=== PATIENT | female | born 1990 | race Caucasian/White ===

== ENCOUNTER 2016-05-14 21:44 | Outpatient (CLI) | payer OTHER, MEDICAID ==
[2016-05-14 22:24] VITALS: BMI 39.4
== END 2016-05-15 00:18 | disposition home or self-care (01) ==
LOC: FBC 21:44 → FBCOUT 21:44
PROVIDERS: ATTEND Family Medicine
DX: O47.9 False labor, unspecified (principal); Z3A.00 Weeks of gestation of pregnancy not specified
CPT/HCPCS: 59025; 81002; G0463

== ENCOUNTER 2016-06-03 19:49 | Outpatient (CLI) | payer OTHER, MEDICAID ==
[2016-06-03 20:09] VITALS: BMI 40.1
== END 2016-06-03 23:00 | disposition home or self-care (01) ==
LOC: FBC 19:49 → FBCOUT 19:49
PROVIDERS: ATTEND Family Medicine
DX: O47.9 False labor, unspecified (principal); Z3A.00 Weeks of gestation of pregnancy not specified
CPT/HCPCS: 59025; 81002; G0463

== ENCOUNTER 2016-06-05 18:33 | Inpatient (IN) | payer OTHER, MEDICAID ==
[~2016-06-05 18:33] MED LIST: OXYTOCIN IN LR 500 ML IV ONE
[2016-06-05] MEDS ORDERED: IV START KIT ONE (19:37)
[2016-06-05] MEDS ORDERED: LACTATED RINGERS 1,000 ML ONE (19:38)
[2016-06-05] MEDS ORDERED: MINERAL OIL 25 ML BOT ONE (19:38)
[2016-06-05] MEDS ORDERED: LIDOCAINE Viscous 2% 15 ML UDCUP ONE (19:38)
[2016-06-05] MEDS ORDERED: OXYTOCIN 10 UNITS/ML VIAL ONE (19:38)
[2016-06-05] MEDS ORDERED: LIDOCAINE 1% (PRES FREE) 30 ML VIAL ONE (19:38)
[2016-06-05] MEDS ORDERED: PUMP TUBING ONE (19:38)
[2016-06-05] MEDS ORDERED: OXYTOCIN IN LR 500 ML IV ONE (19:38)
[2016-06-05 20:36] LABS: HEMOGLOBIN 10.6 gm/l (12.0-16.0); MEAN CORPUSCULAR HEMOGLOBIN 25.2 pg (27.0-31.0); MEAN CORPUSCULAR HGB CONC 31.2 g/dl (33.0-37.0); RED CELL DISTRIBUTION WIDTH 15.9 % (11.5-14.5)
[2016-06-05 20:58] LABS: ALB/GLOB RATIO 0.9 (>1.0); CALCIUM 8.8 mg/dL (8.6-10.3); URIC ACID 3.8 mg/dL (2.3-7.6)
--- NOTE | 2016-06-05 21:01 | PCMAN ---
OB Admission Note - History : 2 Term: 1 : 1 Livin EDC:: 06/10/16 Gestational Age (weeks): 39 Days (#/7): 2 Admit Cervical Dilation:: 2 Admit Cervical Effacement (%):: 60 Admit Station:: -3 Admit Presentaton:: vertex Membrane Status: Intact Membranes Comment:: intact Contractions: Yes Contraction Frequency:: 3-5 min Heart Rate:: 150 Status:: category I - Physical Exam General: Afebrile Psych/Mental Status: Mood/Affect Appropriate, Judgment/Insight Intact Neurological: Grossly Intact, Alert, Oriented x 4, Normal Gait, Normal Speech, Normal Reflexes, Cranial Nerves 3-12 Intact HEENT: Atraumatic, PERRLA, EOMI Lungs: Clear to Auscultation Bilaterally, Normal Air Movement Cardiovascular: Regular Rate and Rhythm, Normal S1, Normal S2, No Murmur Genitourinary: Normal Female Genitalia Rectal Exam: Deferred Extremities: Full ROM, Normal Cap Refill, Normal Pulses Skin: Normal Color, Warm, Dry, Intact - Problems (1) Pre-eclampsia affecting , antepartum Status: Acute Code: O14.90 Assessment/Plan: 25 yr old at 39 2/7 weeks with BPs 140's/80's and proteinuria. PIH labs pending. Pt is TOLAC, so placed perry bulb for mechanical dilation. Bulb filled to 60 ml. (2) 39 weeks gestation of Status: Acute Code: Z3A.39 (3) Encounter for trial of labor Status: Acute Code: O33.4XX0 Assessment/Plan: TOLAC.
[2016-06-05 21:04] VITALS: BMI 42.4
[2016-06-05 22:32] LABS: CREATININE,RANDOM URINE 174 mg/dL
--- NOTE | 2016-06-06 08:07 | PDOC36 ---
Provider Note Subject: Update: Note: 25 yr old at 39 3/7 weeks IOL for mild pre-eclampsia. Martinez bulb was in overnight for mechanical cervical ripening. Pt reports was able to get a little sleep, and pain scale ranged 3-5 overnight with CTXs. FHR has been category I. [place]: CTXs q2-5 minutes. cervix check after bulb removal: 3 cm ( can stretch to 4 cm), 60%/ -3, soft but still posterior. AROM clear/blood tinged fluid. Await active labor. If needed, can add low-dose pitocin.
[2016-06-06] MEDS: LACTATED RINGERS 1,000 ML IV SCH ×3 (09:00→17:00)
[2016-06-06] MEDS ORDERED: FENTANYL 100 MCG/2 ML VIAL IV PRN (09:08)
--- NOTE | 2016-06-06 09:30 | PDOC36 ---
Provider Note Subject: Update Note: 25 yr old at 39 3/7 weeks. Pt requesting pain medication and given fentanyl 50 mcg times 1. FHTs 140's and category I. cx: 5 / 70%/-1, mid position. CTXs q 2-3 min and pt rates them > 7 on pain scale. Pt now requesting epidural.
[2016-06-06] MEDS ORDERED: FENTANYL/ROPIVACAINE EPIDURAL 250 ML EP ONE (09:35)
[2016-06-06] MEDS ORDERED: BUPIVACAINE 0.25% (PRES FREE) 30 ML VIAL ONE (09:50)
[2016-06-06] MEDS ORDERED: EPIDURAL PROCEDURE TRAY ONE (09:50)
[2016-06-06] MEDS ORDERED: EPIDURAL PUMP SET ONE (10:13)
[2016-06-06] MEDS ORDERED: LIDOCAINE 1% (PRES FREE) 30 ML VIAL IF ONE (22:19)
[2016-06-06] MEDS ORDERED: BENZOCAINE/MENTHOL 60 APPLIC/BOT TP PRN (22:36)
[2016-06-06] MEDS ORDERED: LANOLIN 50 APPLIC/7G TUBE TP PRN (22:36)
[2016-06-06] MEDS ORDERED: OXYCODONE HCL 5 MG TABLET PO PRN (22:36)
--- NOTE | 2016-06-06 22:41 | PCMDEL ---
Delivery Note - Labor 1st stage (hr/min):: 12 hr / 30 min 2nd stage (hr/min):: 1 hr / 32 min 3rd stage (hr/min):: 0 hr/ 6 min Total (hr/min):: 14 hr/ 8 min Pushed (hr/min):: 1 hr / 0 min - Delivery Delivery (Date): 06/06/16 Delivery (Time): 21:48 Gender: Female Position: OA Umbilical Cord: 3 Vessel, Nuchal Cord Delayed Cord Clamping:: < 1 min 1 Minute Total: 3 5 Minute Total: 7 (10 min:9) Placenta:: complete and spontaneous EBL:: 450 Perineum:: 2nd degree ML with extension to left posterior labial Suture:: 3-0 vicryl Anesthesia/Meds:: Epidural/ lidocaine for local perineum Length ROM:: 14 hours Comments:: 25 yr old G2 now P2 at 39 3/7 weeks. Pt is now successful vaginal after . Pt was admitted 06-05-16 for IOL due to pre-eclampsia. Transcervical perry bulb used for mechanical cervical ripening overnight, followed by AROM this AM. Pt had spontaneous contractions from these measures resulting in normal spontaneous vaginal . female appeared stunned at delivery, so cord was clamped at about 1 min post for resuscitation. Infant received PPV, CPAP, blow-by support and these measures were successful.
[2016-06-06] MEDS: IBUPROFEN 800 MG TABLET PO PRN (22:51)
[2016-06-07] MEDS: IBUPROFEN 800 MG TABLET PO PRN ×3 (05:15→19:59)
[2016-06-07 06:21] LABS: HEMATOCRIT 30.4 % (37.0-47.0); HEMOGLOBIN 9.7 gm/l (12.0-16.0)
[2016-06-07] MEDS: HYDROCODONE/ACETAMINOPHEN 5/325MG TABLET PO PRN ×4 (06:28→20:54)
--- NOTE | 2016-06-07 10:16 | PDOC44 ---
- Subjective Day: 1 BOnding well; pain is tolerable with medication. Reports Flatus, Reports Pain Tolerable, Reports , Reports Lochia Light - Objective Temp Pulse Resp BP Pulse Ox 98.0 F 96 18 149/75 06/07/16 07:47 06/07/16 07:47 06/07/16 07:47 06/07/16 07:47 Lab Results 06/07/16 05:30 Hgb 9.7 L Hct 30.4 L Current Medications Generic Name Dose Route Start Last Admin Trade Name Freq PRN Reason Stop Dose Admin Acetaminophen/Hydrocodone Bitart 1 - 2 tab 06/06/16 22:36 06/07/16 06:28 Wesley 5/325 PO 1 tab Q4H PRN Administration Pain (Moderate) Benzocaine/Menthol 1 applic 06/06/16 22:36 06/06/16 23:35 Dermoplast TP 1 bot PRN PRN Administration Patient Comfort Docusate Sodium 100 mg 06/06/16 22:36 Colace PO DAILY PRN Comfort Emollient Ointment 1 applic 06/06/16 22:36 Vej-P-[id number] TP PRN PRN sore nipples Ibuprofen 800 mg 06/06/16 22:36 06/07/16 05:15 Motrin PO 800 mg Q6H PRN Administration Pain (Mild) Oxycodone HCl 5 - 10 mg 06/06/16 22:36 Roxicodone PO Q3H PRN Pain (Severe) Sodium Chloride 10 ml 06/06/16 22:36 Normal Saline 10ml Flush IV PRN PRN IV Flush - Physical Exam General: Afebrile Psych/Mental Status: Mood/Affect Appropriate, Judgment/Insight Intact, Bonding Well Neurological: Grossly Intact, Alert, Oriented x 4, Normal Gait, Normal Speech, Normal Reflexes, Cranial Nerves 3-12 Intact HEENT: Atraumatic, PERRLA, EOMI, Mucous membr. moist/pink Lungs: Clear to Auscultation Bilaterally, Normal Air Movement Cardiovascular: Regular Rate and Rhythm, Normal S1, Normal S2, No Murmur Breast: Skin intact Fundus: Firm, Below Umbilicus Abdomen: Normal Bowel Sounds Lochia: Light Extremities: Full ROM, Normal Cap Refill, Normal Pulses - Problems:Assessment/Plan (1) Pre-eclampsia affecting , antepartum Status: Acute Assessment/Plan: BPs normal since delivery. (2) 39 weeks gestation of Status: Acute (3) Encounter for trial of labor Status: Acute Assessment/Plan: Successful (4) (normal spontaneous vaginal delivery) Status: Acute Disposition: Stable, Anticipate DC Home Tomorrow
[2016-06-07] MEDS: DOCUSATE SODIUM 100 MG CAPSULE PO PRN (13:05)
[2016-06-08] MEDS: HYDROCODONE/ACETAMINOPHEN 5/325MG TABLET PO PRN ×3 (00:46→08:42)
[2016-06-08] MEDS ORDERED: ONDANSETRON 4 MG ODT TAB PO PRN (00:58)
[2016-06-08] MEDS: IBUPROFEN 800 MG TABLET PO PRN ×2 (02:27→08:42)
[2016-06-08] MEDS: DOCUSATE SODIUM 100 MG CAPSULE PO PRN (08:42)
[2016-06-08 08:53] VITALS: BP 132/74
--- NOTE | 2016-06-08 10:46 | PDOC39B ---
Hospital Course: ADMIT DATE: 06/05/16 DISCHARGE DATE: 06/08/2016 ADMISSION DIAGNOSES: preeclampsia at 39 2/7 weeks, trial of labor after PROCEDURES: Induction of labor, normal spontaneous vaginal delivery. HISTORY OF PRESENT ILLNESS: 25 year old G2 T1 L1 at 39 weeks 2 days presenting with mild pre-eclampsia. Given full term status, decision was made to induce labor. HOSPITAL COURSE: The patient progressed to normal spontaneous vaginal delivery ( see notes on delivery). By day of discharge the patient is ambulating, eating, voiding, and passing flatus without difficulty. Pain is controlled and lochia is appropriate. She is . - Physical Exam Vital Signs: Temp Pulse Resp BP Pulse Ox 97.9 F 93 18 132/74 06/08/16 08:51 06/08/16 08:51 06/08/16 08:51 06/08/16 08:51 General: Afebrile Psych/Mental Status: Mood/Affect Appropriate, Judgment/Insight Intact, Bonding Well Neurological: Grossly Intact, Alert, Oriented x 4, Normal Gait, Normal Speech, Normal Reflexes, Cranial Nerves 3-12 Intact HEENT: Atraumatic, PERRLA, EOMI, Mucous membr. moist/pink Lungs: Clear to Auscultation Bilaterally, Normal Air Movement Cardiovascular: Regular Rate and Rhythm, Normal S1, Normal S2, No Murmur Breast: Soft, Nipples Intact Fundus: Firm, Below Umbilicus Abdomen: Normal Bowel Sounds Extremities: Full ROM, Normal Cap Refill, Normal Pulses Skin: Normal Color, Warm, Dry, Intact - Discharge Diagnosis (1) Pre-eclampsia affecting , antepartum Status: Acute Assessment/Plan: Resolved with delivery. (2) 39 weeks gestation of Status: Acute (3) Encounter for trial of labor Status: Acute Assessment/Plan: Successful . (4) (normal spontaneous vaginal delivery) Status: Acute Assessment/Plan: Discharge home today with . - Discharge Plan Condition: Good Disposition: Home Additional Instructions: Discharge home today. Vaginal rest times 6 weeks. Regular diet. Medications as prescribed/printed. Follow up with Dr. Noonan in office 07-17-2016 at 13: 15 (1:15 pm). Prescriptions: Docusate Sodium [COLACE 100 MG CAPSULE (SHF)] 100 mg PO DAILY PRN #30 capsule PRN Reason: Comfort Ibuprofen [IBUPROFEN 800 MG TABLET (SHF)] 800 mg PO Q6H PRN #90 tablet PRN Reason: Pain (Mild) Hydrocodone Bit/Acetaminophen [NORCO 5/325 MG TABLET (SHF)] 1 - 2 tab PO Q4H PRN #20 tablet PRN Reason: Pain (Moderate) Vit/Iron Fumarate/FA [ Tablet] 1 tab PO DAILY #100 tablet Follow-Up: Maria Dolores Noonan MD [Primary Care Provider] - 07/17/16 1:15 pm (6 week check up) AMADA Zamora [Outside] - Within 1-2 days
== END 2016-06-08 13:40 | disposition home or self-care (01) | DRG 775 ==
LOC: FBC 18:33 → EDSTATUS 06-10 18:32
PROVIDERS: ADMIT Family Medicine; ATTEND Family Medicine
PROC: 0U7C7ZZ Dilation of Cervix, Via Natural or Artificial Opening (ICD-10-PCS; 2016-06-05)
PROC: 10E0XZZ Delivery of Products of Conception, External Approach (ICD-10-PCS; principal; 2016-06-06)
PROC: 0KQM0ZZ Repair Perineum Muscle, Open Approach (ICD-10-PCS; 2016-06-06)
PROC: 10907ZC Drainage of Amniotic Fluid, Therapeutic from Products of Conception, Via Natural or Artificial Opening (ICD-10-PCS; 2016-06-06)
PROC: 00HU33Z Insertion of Infusion Device into Spinal Canal, Percutaneous Approach (ICD-10-PCS; 2016-06-06)
DX: O14.04 Mild to moderate pre-eclampsia, complicating childbirth (principal); O34.219 Maternal care for unspecified type scar from previous cesarean delivery; N85.8 Other specified noninflammatory disorders of uterus; O69.81X0 Labor and delivery complicated by cord around neck, without compression, not applicable or unspecified; O70.1 Second degree perineal laceration during delivery; Z3A.39 39 weeks gestation of pregnancy; Z37.0 Single live birth

== ENCOUNTER 2016-06-12 14:08 | Outpatient (CLI) | payer OTHER, MEDICAID | END 2016-06-12 14:09 | disposition home or self-care (01) | LOC: BABIESSH 14:08 | PROVIDERS: ATTEND Family Medicine | DX: Z39.1 Encounter for care and examination of lactating mother (principal) ==

== ENCOUNTER 2016-06-16 12:59 | Outpatient (CLI) | payer OTHER, MEDICAID | END 2016-06-16 13:00 | disposition home or self-care (01) | LOC: BABIESSH 12:59 | PROVIDERS: ATTEND Family Medicine | DX: Z39.1 Encounter for care and examination of lactating mother (principal) ==

== ENCOUNTER 2016-08-14 12:48 | Outpatient (CLI) | payer OTHER, MEDICAID | END 2016-08-14 12:49 | disposition home or self-care (01) | LOC: BABIESSH 12:48 | PROVIDERS: ATTEND Family Medicine | DX: Z39.1 Encounter for care and examination of lactating mother (principal) ==

== ENCOUNTER 2016-08-21 12:55 | Outpatient (CLI) | payer OTHER, MEDICAID | END 2016-08-21 12:56 | disposition home or self-care (01) | LOC: BABIESSH 12:55 | PROVIDERS: ATTEND Family Medicine | DX: Z39.1 Encounter for care and examination of lactating mother (principal) ==